=== PATIENT | male | born 1960 | race Caucasian/White ===

== ENCOUNTER 2016-06-10 12:24 | Emergency (ER) | payer MEDICARE, MEDICAID ==
[2016-06-10] MEDS ORDERED: ONDANSETRON 4 MG VIAL ONE (16:14)
[2016-06-10] MEDS ORDERED: SODIUM CHLORIDE 0.9% 100 ML IV ONE (16:15)
[2016-06-10] MEDS ORDERED: DILAUDID 1 MG/ML AMP ONE (16:15)
[2016-06-10] MEDS ORDERED: CEFTRIAXONE 1 GM VIAL ONE (16:16)
[2016-06-10] MEDS ORDERED: Hydrocodone/APAP 10/325 MG TAB ONE (17:54)
== END 2016-06-10 18:03 | disposition home or self-care (01) ==
LOC: ER 12:24
CPT/HCPCS: 36415 ×2; 73630; 80053 ×2; 81001 ×2; 83690 ×2; 84550 ×2; 85025 ×2; 85652 ×2; 87077 ×2; 87088 ×2; 87186 ×2; 96365 ×2; 96367 ×2; 99284; J0696; J1170; J2405; J7050